=== PATIENT | male | born 1945 | race Caucasian/White ===

== ENCOUNTER → 2016-07-23 | Day surgery (SDC) | payer MEDICARE ==
[~2016-07-23] MED LIST: Lactated Ringers 1,000 ML IV SCH; Propofol 200 MG/20 ML SDV IV ONE
[2016-07-23 10:29] VITALS: BP 128/67
--- NOTE | 2016-07-23 14:44 | OR ---
DATE OF OPERATION: 07/23/2016 PREOPERATIVE DIAGNOSIS: DYSPHAGIA WITH HISTORY OF REFLUX. POSTOPERATIVE DIAGNOSIS: HIATAL HERNIA WITH OBSTRUCTING SCHATZKI RING. SURGEON: Chalino Ladd MD PROCEDURE: EGD WITH BIOPSIES X2 AND ELIGIO. DILATION OF SCHATZKI RING TO 15 MM. ANESTHESIA: [employer] due to advanced age and chronic GERD. COMPLICATIONS: None. SPECIMEN: 1. Antral biopsy x2. 2. ELIGIO. 3. Fundal polyp. FINDINGS: 1. Full-length EGD. 2. Mild antral gastritis. 3. Benign adenomatous fundal polyp. 4. Hiatal hernia with mildly obstructing Schatzki ring. RECOMMENDATIONS: We dilated the patient to 15 mm and then started to get some bleeding at the EG junction, elected to stop after two dilatations. If the patient remains symptomatic, would wait a couple of weeks and maybe re-dilate to 18. INDICATIONS: The patient has a history of hiatal hernia and chronic reflux. He has had, I believe, two prior dilatation procedures with great success in the past 10-12 years. He has been starting to have some early signs of dysphagia with solid foods. Dr. Dillard sent him for procedure. DESCRIPTION OF PROCEDURE: The patient was prepped and draped, placed in the left lateral decubitus position. A lubricated Olympus gastroscope inserted over a bit and easily intubated in the esophagus. Esophageal lining was benign in its entire course. The Z-line was crisp and sharp around 37.5 cm. There was a hiatal hernia and a mildly obstructing Schatzki ring. No signs of any esophagitis, ulceration or Stevens's changes. The scope was advanced into the stomach through the pylorus into the third portion of the duodenum. Second and third portion of the duodenum along with duodenal bulb were benign. Scope was brought back into the stomach. Retroflex of the upper fundus and cardia were unremarkable other than the hernia present. Upon straightening, good look at the rest of the fundus and antrum showed some gastritis, mild and very chronic in appearance of the antrum. Two biopsies were taken along with a ELIGIO test. There was one small adenomatous polyp in the mid fundus which was removed in its entirety with forceps. The scope was then brought back up into the distal esophagus. A balloon dilator was inserted and we dilated at 13, 14 and 15 mm in sequential order in usual fashion without any complication. He had a little bit of bleeding at 14 and slightly more at 15 with a nice overall result. We elected to stop at that point as the patient should have resolution of symptoms. Balloon dilator was removed. Air was suctioned from the stomach and the scope was removed without complication. BERNARDINO/CAROLINA /[id number]
== END ==
LOC: CC.SDS 08:48
PROVIDERS: ATTEND Family Medicine
DX: K29.50 Unspecified chronic gastritis without bleeding (principal); D13.1 Benign neoplasm of stomach; K44.9 Diaphragmatic hernia without obstruction or gangrene; K22.2 Esophageal obstruction; K21.9 Gastro-esophageal reflux disease without esophagitis
CPT/HCPCS: 43239; 43249; 87081; J7120; 00740; 88305; A4216; J2704

== ENCOUNTER 2016-08-09 13:11 | Emergency (ER) | payer MEDICARE ==
--- NOTE | 2016-08-09 13:31 | EDM.PDOC ---
ED HPI GENERAL MEDICAL PROBLEM - General Chief Complaint: Neuro Symptoms/Deficits Stated Complaint: "unable to speak" Time Seen by Provider: 08/09/16 13:15 Source of Information: Reports: Patient, EMS History Limitations: Reports: No Limitations - History of Present Illness INITIAL COMMENTS - FREE TEXT/NARRATIVE: This patient is a 71 year old male that presents to the ER. Patient arrives via EMS. The patient is alert and oriented, he and EMS are my historians. MES reports that [employer] went to the patients house today to make delivery and the patient did not open the door. So, they went to the neighbors house who has a odom. EMS reports that the neighbor and [employer] was at the patient house after using odom for entry. They reported that the only thing they would say to them was short words like "alright, okay." They reported that he would not say anything else other than that. [employer] and neighbor reported that they became concerned with the patient have so little interaction than normal. The EMS reports to me that when they arrived to the house that the patient was laying in bed with his head propped up. They report that the patients was generally weak and would not get out of bed. They report that it took EMS and the neighbor to move the patient, they had to nearly lift him. They report the patient was not able to put any weight on either leg equally. They report the patient was answering questions appropriately for them. Upon arrival to the ER, the patient is generally weak. There are no unilateral weaknesses. The patient is alert and oriented. The patient does follow my commands. The patient denies cardenas, dizziness, n, v, d, f, cp, soa, congestion, cough, abd pain, urinary/bowel changes, rashes. Onset: Unknown/Unsure Location: Reports: Generalized Severity: Moderate Worsens with: Reports: None Associated Symptoms: Reports: Weakness (generalized). Denies: Confusion, Chest Pain, Cough, cough w sputum, Diaphoresis, Fever/Chills, Headaches, Loss of Appetite, Malaise, Nausea/Vomiting, Rash, Seizure, Shortness of Breath, Syncope - Related Data Allergies Allergy/AdvReac Type Severity Reaction Status Date / Time No Known Allergies Allergy Verified 08/09/16 13:20 Home Meds: Home Meds Esomeprazole [NexIUM] 40 mg PO DAILY 12/26/14 [History] Cholecalciferol (Vitamin D3) [Vitamin D3] 3,000 units PO DAILY 08/09/16 [History ] Social & Family History - Tobacco Use Smoking Status *Q: Former Smoker Used Tobacco, but Quit: Yes Month Tobacco Last Used: 20y.a - Caffeine Use Caffeine Use: Reports: Coffee - Recreational Drug Use Recreational Drug Use: No ED ROS GENERAL - Review of Systems Review Of Systems: See Below Constitutional: Reports: Weakness (generalized) HEENT: Reports: No Symptoms Respiratory: Reports: No Symptoms Cardiovascular: Reports: No Symptoms Endocrine: Reports: No Symptoms GI/Abdominal: Reports: No Symptoms : Reports: No Symptoms Musculoskeletal: Reports: No Symptoms Neurological: Reports: Trouble Speaking (per meals [employer] and neighbor. Resolved upon EMS arrival and ER arrival. ), Weakness (generalized. ), Gait Disturbance (generally weak in both legs. ). Denies: Headache Psychiatric: Reports: No Symptoms Hematologic/Lymphatic: Reports: No Symptoms Immunologic: Reports: No Symptoms ED EXAM, NEURO - Physical Exam Exam: See Below Exam Limited By: No Limitations General Appearance: Alert, WD/WN, No Apparent Distress Eye Exam: Bilateral Eye: EOMI, Normal Inspection, PERRL Ears: Normal External Exam, Normal Canal, Hearing Grossly Normal, Normal TMs Nose: Normal Inspection, Normal Mucosa, No Blood Throat/Mouth: Normal Inspection, Normal Lips, Normal Gums, Normal Oropharynx, Normal Voice, No Airway Compromise Head Exam: Atraumatic, Normocephalic Neck: Normal Inspection, Supple, Non-Tender, Full Range of Motion Respiratory/Chest: No Respiratory Distress, Lungs Clear, Normal Breath Sounds, No Accessory Muscle Use, Chest Non-Tender Cardiovascular: Normal Peripheral Pulses, Regular Rate, Rhythm, No Edema, No Gallop, No JVD, No Murmur, No Rub GI/Abdominal: Normal Bowel Sounds, Soft, Non-Tender, No Organomegaly, No Distention, No Abnormal Bruit, No Mass, Hernia (umbilical. Not incarcerated. ) Neurological: Alert, Oriented x 3, Difficulty Walking, Other (Generally and equally weak. Unable to lift either leg off bed. Stroke Score 6. Bilateral leg weakness without lifting ability (6). ) Back Exam: Normal Inspection, Full Range of Motion. 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 No redness, no heat. Chronic. Tenderness right hip, posterior, anterior. ) Psychiatric: Normal Mood, Flat Affect (patient baseline. ) Skin Exam: Warm, Dry, Intact, Normal Color, No Rash EKG INTERPRETATION EKG Date: 08/09/16 Time: 13:19 Rhythm: Other (tachy) Rate (Beats/Min): 115 ST-T: Normal Comparison: NA - No Prior EKG Course - Vital Signs Last Recorded V/S: Last Vital Signs Temp 97.9 F 08/09/16 13:11 Pulse 113 H 08/09/16 13:11 Resp 18 08/09/16 13:11 BP 136/68 08/09/16 13:11 Pulse Ox 100 08/09/16 13:11 - Orders/Labs/Meds Orders: Active Orders 24 hr Category Date Time Status Abdomen Pelvis w Cont [CT] Stat Exams 08/09/16 14:47 Taken Chest 1V Frontal [CR] Stat Exams 08/09/16 13:31 Taken Chest w Cont [CT] Stat Exams 08/09/16 14:47 Taken Head wo Cont [CT] Stat Exams 08/09/16 13:25 Taken CULTURE BLOOD [BC] Stat Lab 08/09/16 14:04 Received CULTURE BLOOD [BC] Stat Lab 08/09/16 14:04 Received Blood Culture x2 Reflex Set [OM.PC] Stat Oth 08/09/16 13:49 Ordered Labs: Laboratory Tests 08/09/16 08/09/16 08/09/16 Range/Units 13:25 13:30 13:30 WBC 25.0 H* (5.0-10.0) 10^3/uL RBC 4.70 (4.50-6.00) 10^6/uL Hgb 15.2 (14.0-18.0) g/dL Hct 41.6 (40.0-54.0) % MCV 88.5 (82.0-94.0) fL MCH 32.3 H (27.0-32.0) pg MCHC 36.5 (33.0-38.0) g/dL RDW Coeff of Jadon 12.2 (11.0-15.0) % Plt Count 257 (150-400) 10^3/uL Add Manual Diff Yes Neutrophils % (Manual) 84 (35-85) % Band Neutrophils % 4 (0-5) % Lymphocytes % (Manual) 6 L (21-55) % Monocytes % (Manual) 6 (2-12) % Absolute Neutrophils 22.00 H (1.80-7.00) 10^3/uL Lymphocytes # (Manual) 1.50 (1.00-4.80) 10^3/uL Monocytes # (Manual) 1.50 H (0.00-0.80) 10^3/uL Sodium 138 (136-145) mEq/L Potassium 4.4 (3.5-5.0) mEq/L Chloride 99 (98-106) mEq/L Carbon Dioxide 25 (21-32) mmol/L BUN 21 H D (7-18) mg/dL Creatinine 1.4 H (0.7-1.3) mg/dL Est Cr Clr Drug Dosing 39.78 mL/min Estimated GFR (MDRD) 50 L (>=60) mL/min Glucose 193 H (75-99) mg/dL Lactic Acid (0.4-2.0) mmol/L Calcium 10.6 H (8.4-10.1) mg/dL Total Bilirubin 3.0 H (0.0-1.0) mg/dL AST 92 H (15-37) U/L ALT 36 (12-78) U/L Alkaline Phosphatase 165 H (46-116) U/L Troponin I < 0.017 (0.00-0.06) ng/mL C-Reactive Protein 9.2 H (0.2-0.8) mg/dL Total Protein 7.6 (6.4-8.2) g/dL Albumin 3.9 (3.4-5.0) g/dL Urine Color Dark yellow (YELLOW) Urine Appearance Clear (CLEAR) Urine pH 5.0 (4.5-8.0) Ur Specific [place] 1.028 H (1.003-1.020) Urine Protein 30 H (NEGATIVE) mg/dL Urine Glucose (UA) 500 H (NEGATIVE) mg/dL Urine Ketones Negative (NEGATIVE) mg/dL Urine Occult Blood Moderate H (NEGATIVE) Urine Nitrite Negative (NEGATIVE) Urine Bilirubin Negative (NEGATIVE) Urine Urobilinogen 0.2 (0.2-1.0) EU/dL Ur Leukocyte Esterase Negative (NEGATIVE) Urine RBC 0-5 (0-5) /HPF Urine WBC Not seen (0-5) /HPF Ur Squamous Epith Cells Occasional H (NOT SEEN) /HPF Amorphous Sediment Moderate H (NOT SEEN) /HPF Urine Bacteria Few H (NOT SEEN) /HPF Hyaline Casts Few H (NOT SEEN) /LPF Urine Mucus Few H (NOT SEEN) /HPF 08/09/16 Range/Units 14:04 WBC (5.0-10.0) 10^3/uL RBC (4.50-6.00) 10^6/uL Hgb (14.0-18.0) g/dL Hct (40.0-54.0) % MCV (82.0-94.0) fL MCH (27.0-32.0) pg MCHC (33.0-38.0) g/dL RDW Coeff of Jadon (11.0-15.0) % Plt Count (150-400) 10^3/uL Add Manual Diff Neutrophils % (Manual) (35-85) % Band Neutrophils % (0-5) % Lymphocytes % (Manual) (21-55) % Monocytes % (Manual) (2-12) % Absolute Neutrophils (1.80-7.00) 10^3/uL Lymphocytes # (Manual) (1.00-4.80) 10^3/uL Monocytes # (Manual) (0.00-0.80) 10^3/uL Sodium (136-145) mEq/L Potassium (3.5-5.0) mEq/L Chloride (98-106) mEq/L Carbon Dioxide (21-32) mmol/L BUN (7-18) mg/dL Creatinine (0.7-1.3) mg/dL Est Cr Clr Drug Dosing mL/min Estimated GFR (MDRD) (>=60) mL/min Glucose (75-99) mg/dL Lactic Acid 5.4 H (0.4-2.0) mmol/L Calcium (8.4-10.1) mg/dL Total Bilirubin (0.0-1.0) mg/dL AST (15-37) U/L ALT (12-78) U/L Alkaline Phosphatase (46-116) U/L Troponin I (0.00-0.06) ng/mL C-Reactive Protein (0.2-0.8) mg/dL Total Protein (6.4-8.2) g/dL Albumin (3.4-5.0) g/dL Urine Color (YELLOW) Urine Appearance (CLEAR) Urine pH (4.5-8.0) Ur Specific [place] (1.003-1.020) Urine Protein (NEGATIVE) mg/dL Urine Glucose (UA) (NEGATIVE) mg/dL Urine Ketones (NEGATIVE) mg/dL Urine Occult Blood (NEGATIVE) Urine Nitrite (NEGATIVE) Urine Bilirubin (NEGATIVE) Urine Urobilinogen (0.2-1.0) EU/dL Ur Leukocyte Esterase (NEGATIVE) Urine RBC (0-5) /HPF Urine WBC (0-5) /HPF Ur Squamous Epith Cells (NOT SEEN) /HPF Amorphous Sediment (NOT SEEN) /HPF Urine Bacteria (NOT SEEN) /HPF Hyaline Casts (NOT SEEN) /LPF Urine Mucus (NOT SEEN) /HPF Meds: Medications Discontinued Medications Generic Name Dose Route Start Last Admin Trade Name Freq PRN Reason Stop Dose Admin Sodium Chloride 1,000 mls @ 1,000 mls/hr 08/09/16 14:01 08/09/16 14:13 Normal Saline IV 08/09/16 15:00 1,000 mls/hr .BOLUS ONE Administration Iopamidol 100 ml 08/09/16 15:08 08/09/16 15:25 Isovue-300 (61%) IVPUSH 08/09/16 15:09 100 ml ONETIME ONE Administration - Radiology Interpretation Free Text/Narrative:: CXR: No previous: No infiltrate, no cardiac enlargement, no pulmonary edema. Head CT; Discussed with radilogist; No acute findings. Chest, abd, pelvis with contrast: Discussed with radiologist: Lungs clear, chest clear. The transverse colon shows intussusception small without infarct. L2 fx, chronic verses acute?, no tenderness on exam at this site. Right greater introchanteric fx. involving femur. CT Results Date: 08/09/16 CT Results Time: 14:31 - Re-Assessments/Exams Free Text/Narrative Re-Assessment/Exam: 08/09/16 14:48 Patient CXR shows no infiltrates, urine shows no leukocytosis, but his WBC is 25 ,000. I will order chest/abd/pelvis ct to search for a reason behind his leukocytosis and generalized weakness to better treat him. He is dehydrated, I have ordered fluids. 08/09/16 17:[address] Teague about this patient at [facility] ER. The family would like patient transferred to [facility] because this is where they live and the patient is located. Dr. Teague has agreed to accept transfer of this patient. He does not want any further testing or orders performed at this time. It is possible the leukocytosis is caused by a possible fall for prolonged laying. Patient denies the fall. I went back to examine patient again. Patient does have mild right external rotation, and pain, tenderness on the right anterior and posterior hip with decreased ROM. Pulses +2, cap refill < 2sec. Sensory intact. Neurovascular intact. Departure - Departure Time of Disposition: 17:22 Disposition: DC/Tfer to [facility] 02 Condition: Fair Clinical Impression: Renal insufficiency Closed right hip fracture Qualifiers: Encounter type: initial encounter Qualified Code(s): S72.001A - Fracture of unspecified part of neck of right femur, initial encounter for closed fracture Leukocytosis Qualifiers: Leukocytosis type: other Qualified Code(s): D72.828 - Other elevated white blood cell count - Discharge Information Referrals: Guido Dillard MD [Primary Care Provider] - Forms: ED Department Discharge - My Orders Last 24 Hours: My Active Orders 08/09/16 13:25 Head wo Cont [CT] Stat 08/09/16 13:31 Chest 1V Frontal [CR] Stat 08/09/16 13:49 Blood Culture x2 Reflex Set [OM.PC] Stat 08/09/16 14:04 CULTURE BLOOD [BC] Stat CULTURE BLOOD [BC] Stat 08/09/16 14:47 Abdomen Pelvis w Cont [CT] Stat Chest w Cont [CT] Stat - Assessment/Plan Last 24 Hours: My Active Orders 08/09/16 13:25 Head wo Cont [CT] Stat 08/09/16 13:31 Chest 1V Frontal [CR] Stat 08/09/16 13:49 Blood Culture x2 Reflex Set [OM.PC] Stat 08/09/16 14:04 CULTURE BLOOD [BC] Stat CULTURE BLOOD [BC] Stat 08/09/16 14:47 Abdomen Pelvis w Cont [CT] Stat Chest w Cont [CT] Stat Plan: PLEASE SEE RN NOTE FOR PFSH. Dr. Teague has accepted the patient. The risks of transfer are MVC, worsening of condition, , cardiac arrest. The benefits of transfer are orthopedic consult, close to family, close to , further workup for leukocytosis. The risks of staying in [place] are no orthopedic consult, not close to family. The benefits of staying in [place] are no transfer.
[2016-08-09 13:54] LABS: CHLORIDE,CL 99 mEq/L (98-106); SODIUM,NA 138 mEq/L (136-145)
[2016-08-09] MEDS ORDERED: Sodium Chloride 0.9% 1,000 ML IV ONE (14:01)
[2016-08-09] MEDS ORDERED: Iopamidol 612 MG/ML 100 ML Bottle IVPUSH ONE (15:08)
[2016-08-09 17:33] VITALS: BP 124/64
== END 2016-08-09 18:27 ==
LOC: CC.ED 13:11
DX: S72.001A Fracture of unspecified part of neck of right femur, initial encounter for closed fracture (principal); D72.828 Other elevated white blood cell count; N28.9 Disorder of kidney and ureter, unspecified; Z79.899 Other long term (current) drug therapy; Z87.891 Personal history of nicotine dependence; X58.XXXA Exposure to other specified factors, initial encounter; R41.82 Altered mental status, unspecified
CPT/HCPCS: 36415; 51701; 70450; 71010; 71260; 74177; 80053; 81001; 83605; 84484; 85025; 86140; 87040; 93005; 93010; 96360; 96361; 99284; 99285; J7030; Q9967